=== PATIENT | female | born 1995 | race Caucasian/White ===

== ENCOUNTER 2018-06-15 07:48 | Emergency (ER) | payer OTHER, MEDICAID ==
[2018-06-15 08:35] LABS: HEMATOCRIT 40.2 % (36.0-47.0); HEMOGLOBIN 13.6 g/dl (12.0-15.5); MEAN CORPUSCULAR HEMOGLOBIN 31.6 pg (27.0-33.0); MEAN CORPUSCULAR HGB CONC 33.8 g/dl (32.0-36.5); MEAN CORPUSCULAR VOLUME 93.5 fl (80.0-96.0); PLATELET COUNT, AUTOMATED 233 10^3/uL (150-450)
[2018-06-15 08:57] LABS: CONTROL LINE HCG INT CTR LINE PRESENT; HCG, SERUM QUALITATIVE NEGATIVE (NEGATIVE)
[2018-06-15 09:01] LABS: ACETAMINOPHEN LEVEL < 2.0 UG/ML (10.0-30.0); ALBUMIN 3.7 GM/DL (3.2-5.2); ALBUMIN/GLOBULIN RATIO 1.23 (1.00-1.93); ALKALINE PHOSPHATASE 49 U/L (45-117); ALT/SGPT 21 U/L (12-78); ANION GAP 7 MEQ/L (8-16); AST/SGOT 16 U/L (7-37); BILIRUBIN,DIRECT 0.1 MG/DL (0.0-0.2); BILIRUBIN,TOTAL 0.5 MG/DL (0.2-1.0); BLOOD UREA NITROGEN 11 MG/DL (7-18); CALCIUM LEVEL 8.4 MG/DL (8.5-10.1); CARBON DIOXIDE LEVEL 28 MEQ/L (21-32); CHLORIDE LEVEL 108 MEQ/L (98-107); CREATININE FOR GFR 0.66 MG/DL (0.55-1.30); ETHYL ALCOHOL (ETHANOL) < 0.003 % (0.000-0.010); GLOMERULAR FILTRATION RATE > 60.0 (>60); GLUCOSE, FASTING 108 MG/DL (70-100); POTASSIUM SERUM 3.6 MEQ/L (3.5-5.1); SALICYLATE LEVEL < 1.7 MG/DL (5.0-30.0); SODIUM LEVEL 143 MEQ/L (136-145); TOTAL PROTEIN 6.7 GM/DL (6.4-8.2)
[2018-06-15 09:26] LABS: AMPHETAMINES LEVEL URINE NEGATIVE (NEGATIVE); BARBITURATES URINE NEGATIVE (NEGATIVE); BENZODIAZEPINES URINE POSITIVE (NEGATIVE); CANNABINOIDS URINE NEGATIVE (NEGATIVE); COCAINE METABOLITE URINE NEGATIVE (NEGATIVE); METHADONE URINE NEGATIVE (NEGATIVE); OPIATES URINE NEGATIVE (NEGATIVE); PHENCYCLIDINE URINE NEGATIVE (NEGATIVE)
[2018-06-15 14:14] LABS: AMORPHOUS SEDIMENT RFX MODERATE (NEGATIVE); KETONE, URINE AUTO RFX NEGATIVE (NEGATIVE); LEUKOCYTE ESTERASE UR AUTO RFX NEGATIVE (NEGATIVE); MUCUS, URINE RFX SMALL (NEGATIVE); NITRITE, URINE AUTO RFX NEGATIVE (NEGATIVE); RBC, URINE AUTO RFX 1 /HPF (0-3); SPECIFIC GRAVITY UR AUTO RFX 1.023 (1.002-1.035); SQUAM EPITHELIAL CELL UR AURFX 0 /HPF (0-6); WBC, URINE AUTO RFX 5 /HPF (0-3)
[2018-06-15] MEDS: NS 1,000 ML IV (14:53)
[2018-06-15] MEDS: ACETAMINOPHEN TAB 650MG DOSE (2X325MG) PO (15:30)
== END 2018-06-15 17:08 | disposition home or self-care (01) ==
LOC: M ED 07:48
DX: F13.10 Sedative, hypnotic or anxiolytic abuse, uncomplicated (principal); F31.9 Bipolar disorder, unspecified; F19.10 Other psychoactive substance abuse, uncomplicated; F11.10 Opioid abuse, uncomplicated; Z79.899 Other long term (current) drug therapy
CPT/HCPCS: 71045

== ENCOUNTER 2018-06-27 15:00 | Outpatient (RCR) | payer MEDICAID | END 2018-07-01 | LOC: M OUTALCOH 15:00 | PROVIDERS: ATTEND Psychiatry & Neurology Psychiatry | DX: F11.20 Opioid dependence, uncomplicated (principal); F13.20 Sedative, hypnotic or anxiolytic dependence, uncomplicated ==

== ENCOUNTER → 2018-06-27 | Outpatient (CLI) | payer OTHER ==
[~2018-06-27] MED LIST: ALPR1TAB3 PO; AMOX500C PO; AMPH20CA PO; COLA100C5 PO; FLAG500T PO; IBUP-1022 PO; IBUP1TAB7 PO; MOM30SS PO; OXCA300T14 PO; SUBO4MIS SL; SUBO8MIS SL; TRAZ-163 PO; TRIL1TAB PO; TRIL600T PO; TYLE500T78 PO; XANA1TAB2 PO; adderall PO; subutex PO; toradol PO
== END ==
LOC: M LAB 16:50
PROVIDERS: ATTEND Psychiatry & Neurology Psychiatry
DX: F11.20 Opioid dependence, uncomplicated (principal)

== ENCOUNTER → 2018-06-28 | Outpatient (REF) | payer OTHER | LOC: M LAB REF 10:56 | PROVIDERS: ATTEND Physician Assistant Medical | DX: N89.9 Noninflammatory disorder of vagina, unspecified (principal) ==

== ENCOUNTER → 2018-08-01 | Outpatient (RCR) | payer MEDICAID | LOC: M OUTALCOH 07-05 08:13 | PROVIDERS: ATTEND Psychiatry & Neurology Psychiatry | DX: F11.20 Opioid dependence, uncomplicated (principal); F13.20 Sedative, hypnotic or anxiolytic dependence, uncomplicated ==

== ENCOUNTER 2018-08-28 08:45 | Outpatient (RCR) | payer MEDICAID | END 2018-08-29 | LOC: M OUTALCOH 08:45 | PROVIDERS: ATTEND Psychiatry & Neurology Psychiatry | DX: F11.20 Opioid dependence, uncomplicated (principal); F13.20 Sedative, hypnotic or anxiolytic dependence, uncomplicated ==

== ENCOUNTER 2018-09-27 11:00 | Outpatient (RCR) | payer MEDICAID | END 2018-09-29 | LOC: M OUTALCOH 11:00 | PROVIDERS: ATTEND Psychiatry & Neurology Psychiatry | DX: F11.20 Opioid dependence, uncomplicated (principal); F13.20 Sedative, hypnotic or anxiolytic dependence, uncomplicated ==

== ENCOUNTER 2018-10-25 16:00 | Outpatient (RCR) | payer MEDICAID | END 2018-10-29 | LOC: M OUTALCOH 16:00 | PROVIDERS: ATTEND Psychiatry & Neurology Psychiatry | DX: F11.20 Opioid dependence, uncomplicated (principal); F13.20 Sedative, hypnotic or anxiolytic dependence, uncomplicated; F15.20 Other stimulant dependence, uncomplicated; Z72.0 Tobacco use ==

== ENCOUNTER → 2018-11-27 | Outpatient (REF) | payer MEDICAID | LOC: M LAB REF 10:34 | PROVIDERS: ATTEND Physician Assistant | DX: J02.9 Acute pharyngitis, unspecified (principal) ==

== ENCOUNTER 2018-11-28 16:00 | Outpatient (RCR) | payer MEDICAID | END 2018-11-29 | LOC: M OUTALCOH 16:00 | PROVIDERS: ATTEND Psychiatry & Neurology Psychiatry | DX: F11.20 Opioid dependence, uncomplicated (principal); F13.20 Sedative, hypnotic or anxiolytic dependence, uncomplicated; F15.20 Other stimulant dependence, uncomplicated; Z72.0 Tobacco use ==

== ENCOUNTER 2018-12-04 16:00 | Outpatient (RCR) | payer MEDICAID | END 2018-12-29 | LOC: M OUTALCOH 16:00 | PROVIDERS: ATTEND Psychiatry & Neurology Psychiatry | DX: F11.20 Opioid dependence, uncomplicated (principal); F13.20 Sedative, hypnotic or anxiolytic dependence, uncomplicated ==

== ENCOUNTER → 2018-12-12 | Outpatient (REF) | payer MEDICAID | LOC: M LAB REF 12:53 | PROVIDERS: ATTEND Advanced Practice Midwife | DX: R30.0 Dysuria (principal) ==

== ENCOUNTER → 2018-12-12 | Outpatient (REF) | payer MEDICAID ==
[2018-12-12 16:59] LABS: CHLAMYDIA DNA AMPLIFICATION NEGATIVE (NEGATIVE); GC DNA AMPLIFICATION NEGATIVE (NEGATIVE)
== END ==
LOC: M LAB REF 12:45
PROVIDERS: ATTEND Advanced Practice Midwife
DX: Z11.3 Encounter for screening for infections with a predominantly sexual mode of transmission (principal)

== ENCOUNTER → 2019-03-04 | Outpatient (REF) | payer MEDICAID | LOC: M LAB REF 20:08 | PROVIDERS: ATTEND Advanced Practice Midwife | DX: Z12.4 Encounter for screening for malignant neoplasm of cervix (principal) ==

== ENCOUNTER 2019-03-28 11:03 | Emergency (ER) | payer MEDICAID, OTHER ==
[2019-03-28] MEDS ORDERED: BUPR8SUB SL (11:17)
[2019-03-28] MEDS ORDERED: NS 1,000 ML IV ONE (11:45)
--- NOTE | 2019-03-28 12:21 | REP ---
Head CT without contrast: History: Syncope. patient. Comparison study: June 15, 2018. CT findings: Bone window settings demonstrate an intact bony calvarium. There is no evidence of skull fracture or incidental bony calvarial lesion. The visualized paranasal sinuses appear clear. No intraorbital abnormality is seen. On soft tissue window setting images; the lateral, third, and fourth ventricles are normal in size and position. Clay-white differentiation pattern is normal above and below the tentorium. There are is no evidence of intracranial hemorrhage. No mass, edema, infarction, or midline shift is seen. No extra-axial fluid collection is appreciated. Impression: Negative noncontrast head CT. Electronically Signed by Juan Rice MD 03/28/2019 12:13 P
--- NOTE | 2019-03-28 12:23 | REP ---
CT study of the cervical spine without contrast: History: Syncope. patient. Technique: Helical scanning is acquired and overlapping 2 mm high resolution axial images were generated and reviewed at bone and soft tissue window settings. Coronal and sagittal multiplanar re-formations images are generated. CT findings: There is no evidence of cervical spine element fracture. No skull base fracture is seen. Cervical vertebral body heights are preserved. Alignment is normal. Facet joints are normally aligned bilaterally at each cervical level on multiplanar re-formations images. There is no evidence of intraspinal or paraspinal hematoma. No extra vertebral abnormality is seen. Impression: Negative CT study of the cervical spine without contrast. No fracture seen. Electronically Signed by Juan Rice MD 03/28/2019 12:14 P
[2019-03-28] MEDS ORDERED: ONDANSETRON 4 MG ORAL DISINTEGRATING TAB (Q0162 PER 1MG) PO ONE (13:30)
[2019-03-28 13:58] LABS: HEMATOCRIT 37.5 % (36.0-47.0); HEMOGLOBIN 13.2 g/dl (12.0-15.5); RED BLOOD COUNT 4.12 10^6/uL (4.00-5.40); WHITE BLOOD COUNT 8.5 10^3/uL (4.0-10.0)
[2019-03-28 13:59] LABS: BASO % 0.4 % (0.0-1.0); EOS % 0.5 % (0.0-3.0); LYMPH # 1.7 10^3/uL (1.5-5.0); LYMPH % 19.8 % (24.0-44.0); MEAN CORPUSCULAR HGB CONC 35.2 g/dl (32.0-36.5); MONO # 0.5 10^3/uL (0.0-0.8); MONO % 5.6 % (0.0-5.0); NEUTROPHILS # 6.2 10^3/uL (1.5-8.5); NEUTROPHILS % 73.2 % (36.0-66.0); PLATELET COUNT, AUTOMATED 223 10^3/uL (150-450)
[2019-03-28 14:35] LABS: BLOOD UREA NITROGEN 10 MG/DL (7-18); CALCIUM LEVEL 8.7 MG/DL (8.5-10.1); CARBON DIOXIDE LEVEL 24 MEQ/L (21-32); CHLORIDE LEVEL 105 MEQ/L (98-107); CREATININE FOR GFR 0.38 MG/DL (0.55-1.30); GLOMERULAR FILTRATION RATE > 60.0 (>60); GLUCOSE, FASTING 75 MG/DL (70-100); SODIUM LEVEL 138 MEQ/L (136-145)
[2019-03-28 15:16] VITALS: BP 117/65
--- NOTE | 2019-03-28 15:19 | REP ---
OB ULTRASOUND: Real-time sonographic evaluation of the gravid uterus performed. There is a single living intrauterine gestation, estimated gestational age 13 weeks 4 days, EDC 09/29/2019. Today's measurements indicate appropriate growth. BPD 22 mm = 13 weeks 5 days, 54th percentile HC 88 mm = 13 weeks 6 days, 61st percentile AC 67 mm = 13 weeks 2 days, 42nd percentile FL 11 mm = 13 weeks 3 days, 43rd percentile HC/AC ratio 1.32, is slightly above normal range of 1.11 to 1.30. Estimated weight 74 grams, 24th percentile. Cervix is closed and measures 4.2 cm in length. heart rate 153 beats per minute. Placenta is anterior and grade 0 with no previa or abruption. Amniotic fluid appears within normal limits. Electronically Signed by Farzad Clay MD 03/28/2019 05:01 P
[2019-03-28 15:32] LABS: HCG, SERUM QUANTITATIVE 32259 MIU/ML
--- NOTE | 2019-03-28 20:09 | ECGEPIP ---
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
== END 2019-03-28 15:31 | disposition home or self-care (01) ==
LOC: EDBD 11:03 → M ED 11:03
DX: O99.89 Other specified diseases and conditions complicating pregnancy, childbirth and the puerperium (principal); R55 Syncope and collapse; Z3A.13 13 weeks gestation of pregnancy
CPT/HCPCS: 36415; 70450; 72125; 76811; 80048; 84443; 84702; 85025; 86850; 86900; 86901; 93005; 93041; 94760; 99285; Q0162

== ENCOUNTER 2019-04-02 05:35 | Emergency (ER) | payer OTHER ==
[~2019-04-02] VITALS: Ht 170.2 cm; Wt 79.1 kg
[~2019-04-02 05:35] MED LIST changes: +AMPH1CAP16 PO; -AMPH20CA PO; +BUPR8SUB SL
[2019-04-02 06:56] LABS: BASO % 0.3 % (0.0-1.0); EOS # 0.1 10^3/uL (0.0-0.5); EOS % 0.8 % (0.0-3.0); HEMATOCRIT 34.5 % (36.0-47.0); HEMOGLOBIN 12.3 g/dl (12.0-15.5); LYMPH # 1.7 10^3/uL (1.5-5.0); LYMPH % 23.1 % (24.0-44.0); MEAN CORPUSCULAR HEMOGLOBIN 32.5 pg (27.0-33.0); MEAN CORPUSCULAR HGB CONC 35.7 g/dl (32.0-36.5); MONO # 0.5 10^3/uL (0.0-0.8); MONO % 6.5 % (0.0-5.0); PLATELET COUNT, AUTOMATED 194 10^3/uL (150-450); RED BLOOD COUNT 3.79 10^6/uL (4.00-5.40); WHITE BLOOD COUNT 7.2 10^3/uL (4.0-10.0)
[2019-04-02 07:46] LABS: ALBUMIN 2.7 GM/DL (3.2-5.2); ALT/SGPT 13 U/L (12-78); BILIRUBIN,DIRECT < 0.1 MG/DL (0.0-0.2); BILIRUBIN,TOTAL 0.4 MG/DL (0.2-1.0); BLOOD UREA NITROGEN 7 MG/DL (7-18); CALCIUM LEVEL 8.3 MG/DL (8.5-10.1); CARBON DIOXIDE LEVEL 22 MEQ/L (21-32); CHLORIDE LEVEL 109 MEQ/L (98-107); GLOMERULAR FILTRATION RATE > 60.0 (>60); GLUCOSE, FASTING 81 MG/DL (70-100); HCG, SERUM QUANTITATIVE 32269 MIU/ML; LIPASE 96 U/L (73-393); POTASSIUM SERUM 3.7 MEQ/L (3.5-5.1); SODIUM LEVEL 140 MEQ/L (136-145); TOTAL PROTEIN 6.2 GM/DL (6.4-8.2)
[2019-04-02 10:30] VITALS: BP 107/57
--- NOTE | 2019-04-02 10:37 | REP ---
Limited obstetric sonography: History: Vaginal bleeding. 14 weeks 2 days by dates. 14 weeks 2 days by prior sonography. Findings: Scanning through the gravid uterus demonstrates a living intrauterine gestation in a cephalic lie. heart rate is recorded at 149 beats per minute. An anterior placenta is seen without evidence of previa. No evidence of subchorionic hemorrhage. Amniotic fluid is subjectively normal. Closed cervical length measured transabdominally is 4.6 cm. Impression: Viable cephalic fetus. No complication is seen. Electronically Signed by Juan Rice MD 04/02/2019 08:38 A
== END 2019-04-02 10:40 | disposition home or self-care (01) ==
LOC: M ED 05:35
DX: O20.8 Other hemorrhage in early pregnancy (principal); Z3A.14 14 weeks gestation of pregnancy; Z86.19 Personal history of other infectious and parasitic diseases; Z87.59 Personal history of other complications of pregnancy, childbirth and the puerperium; O99.89 Other specified diseases and conditions complicating pregnancy, childbirth and the puerperium; F11.21 Opioid dependence, in remission; F13.21 Sedative, hypnotic or anxiolytic dependence, in remission; Z87.891 Personal history of nicotine dependence; Z79.899 Other long term (current) drug therapy

== ENCOUNTER → 2019-04-29 | Outpatient (CLI) | payer OTHER ==
--- NOTE | 2019-04-29 15:07 | REP ---
Clinical: Anatomical evaluation. Comparison: 04/02/2019 . Findings: Examination demonstrates a single live intrauterine in cephalic presentation. motion is identified by technologist. Placenta is noted anterior and grade zero without evidence for placenta previa or abruption. Amniotic fluid volume is normal. Cervix measures 5.3 cm in length and appears closed. No evidence for nuchal cord. Gestational age by LMP 18 weeks 1 day with LUKAS 09/29/2019 . Gestational age by current measurements 17 weeks 5 days with LUKAS 10/02/2019 . FHR equals 149 beats per minute. BPD 3.9 cm 17 weeks 6 days HC 14.7 cm 17 weeks 6 days AC 11.2 cm 17 weeks 0 days FL 2.6 cm 17 weeks 6 days HL 2.5 cm 17 weeks 5 days HC/AC ratio 1.32 Estimated weight 196 grams ( 23rd percentile). Anatomical assessment demonstrates normal structures including cranium, choroid plexus, cavum, lungs, four-chamber heart, diaphragm, stomach, cord insertion, bladder, and extremities. Limited evaluation of the posterior fossa, facial features, cardiac ventricular outflow tracts, three-vessel cord, kidneys and spine. Impression: Single live intrauterine in cephalic presentation demonstrating appropriate interval growth. Anatomical limitations as noted above may warrant reevaluation and follow-up. Electronically Signed by Billy Mckinnon MD 04/29/2019 02:59 P
== END ==
LOC: M RAD 14:09
PROVIDERS: ATTEND Advanced Practice Midwife
DX: Z34.82 Encounter for supervision of other normal pregnancy, second trimester (principal); Z3A.18 18 weeks gestation of pregnancy

== ENCOUNTER 2019-05-08 08:36 | Emergency (ER) | payer OTHER ==
[~2019-05-08] VITALS: Ht 170.2 cm; Wt 87.9 kg
[2019-05-08] MEDS ORDERED: ONDA4TAB5 (09:00)
[2019-05-08] MEDS ORDERED: NS 1,000 ML IV ONE (09:30)
[2019-05-08 10:20] LABS: BASO % 0.3 % (0.0-1.0); EOS % 0.4 % (0.0-3.0); HEMOGLOBIN 11.7 g/dl (12.0-15.5); LYMPH # 1.3 10^3/uL (1.5-5.0); LYMPH % 17.7 % (24.0-44.0); MEAN CORPUSCULAR HEMOGLOBIN 31.3 pg (27.0-33.0); MEAN CORPUSCULAR HGB CONC 33.4 g/dl (32.0-36.5); MEAN CORPUSCULAR VOLUME 93.6 fl (80.0-96.0); MONO # 0.4 10^3/uL (0.0-0.8); MONO % 5.4 % (0.0-5.0); NEUTROPHILS # 5.4 10^3/uL (1.5-8.5); NEUTROPHILS % 75.8 % (36.0-66.0); PLATELET COUNT, AUTOMATED 210 10^3/uL (150-450); RED BLOOD COUNT 3.74 10^6/uL (4.00-5.40); WHITE BLOOD COUNT 7.1 10^3/uL (4.0-10.0)
[2019-05-08 10:31] LABS: INR 1.04; PROTHROMBIN TIME 13.4 SECONDS (11.8-14.0)
[2019-05-08 10:44] LABS: ALBUMIN 2.7 GM/DL (3.2-5.2); ALT/SGPT 13 U/L (12-78); AMYLASE 31 U/L (25-115); BILIRUBIN,DIRECT < 0.1 MG/DL (0.0-0.2); BILIRUBIN,TOTAL 0.4 MG/DL (0.2-1.0); BLOOD UREA NITROGEN 7 MG/DL (7-18); CALCIUM LEVEL 8.3 MG/DL (8.5-10.1); CARBON DIOXIDE LEVEL 24 MEQ/L (21-32); CHLORIDE LEVEL 109 MEQ/L (98-107); GLOMERULAR FILTRATION RATE > 60.0 (>60); GLUCOSE, FASTING 81 MG/DL (70-100); LIPASE 72 U/L (73-393); SODIUM LEVEL 141 MEQ/L (136-145)
[2019-05-08] MEDS ORDERED: MORPHINE 2 MG/ML 1ML VIAL (J2270) IV PRN (10:45)
--- NOTE | 2019-05-08 11:09 | REP ---
Obstetric sonography: Limited study. History: Pain. Findings: Limited obstetric sonography demonstrates a single living intrauterine fetus in variable lie. motion is observed and heart rate is recorder 152 beats per minute. The placenta is anterior without evidence of previa or abruption. Amniotic fluid is subjectively normal. No extrauterine abnormalities observed. Closed cervical length is measured at 4.5 cm viewed transabdominally. Impression: Viable single intrauterine gestation at the and 19 weeks 3 days by prior sonography LUKAS by prior sonography September 29, 2019. No complication is identified. Variable lie. heart rate 152 beats per minute. Anterior placenta. No previa or abruption. Electronically Signed by Juan Rice MD 05/08/2019 11:01 A
[2019-05-08] MEDS ORDERED: HYDROMORPHONE HCL 0.5 MG/ 0.5 ML SYRINGE (J1170 PER 1) IV PRN (11:30)
[2019-05-08 15:58] VITALS: BP 143/63
[2019-05-08] MEDS ORDERED: ACETAMINOPHEN TAB 650MG DOSE (2X325MG) PO ONE (16:15)
== END 2019-05-08 16:25 | disposition home or self-care (01) ==
LOC: M ED 08:36
DX: O26.892 Other specified pregnancy related conditions, second trimester (principal); Z3A.19 19 weeks gestation of pregnancy; R10.2 Pelvic and perineal pain; Z87.891 Personal history of nicotine dependence; Z79.899 Other long term (current) drug therapy
CPT/HCPCS: 36415; 76815; 80048; 80076; 81001; 82150; 83690; 85025; 85610; 85730; 86850; 86900; 86901; 87086; 93041; 96361; 96374; 96375; 99285; J1170; J2270

== ENCOUNTER → 2019-05-23 | Outpatient (REF) | payer MEDICAID ==
[~2019-05-23] MED LIST changes: +ONDA4TAB5
[2019-05-23 21:36] LABS: APPEARANCE, URINE MANUAL HAZY (CLEAR); BILIRUBIN, URINE MANUAL OBSCURED (NEGATIVE); BLOOD URINE MANUAL OBSCURED (NEGATIVE); COLOR, URINE MANUAL ORANGE (YELLOW); GLUCOSE, URINE (UA) MANUAL OBSCURED mg/dL (NEGATIVE); KETONE, URINE MANUAL OBSCURED mg/dL (NEGATIVE); LEUKOCYTE ESTERASE, URINE MAN OBSCURED (NEGATIVE); NITRITE, URINE MANUAL OBSCURED (NEGATIVE); PH,URINE MAN OBSCURED UNITS (5.0 - 7.0); PROTEIN, URINE MANUAL OBSCURED mg/dL (NEGATIVE); SPECIFIC GRAVITY,URINE MANUAL 1.028 (1.002-1.035); UROBILINOGEN, URINE MANUAL OBSCURED mg/dl (NORMAL)
[2019-05-23 21:44] LABS: BACTERIA, URINE MOD AMOUNT; HYALINE CAST, URINE NONE SEEN /lpf (0-1); MUCUS, URINE LARGE AMOUNT (NEGATIVE); SQUAMOUS EPITHELIAL CELL URINE MOD AMOUNT /hpf (SMALL AMT)
== END ==
LOC: M LAB REF 10:21
PROVIDERS: ATTEND Physician Assistant
DX: N39.0 Urinary tract infection, site not specified (principal)

== ENCOUNTER → 2019-05-27 | Outpatient (CLI) | payer MEDICAID ==
[2019-05-27 14:10] LABS: BASO % 0.3 % (0.0-1.0); EOS # 0.1 10^3/uL (0.0-0.5); EOS % 0.9 % (0.0-3.0); HEMATOCRIT 36.5 % (36.0-47.0); HEMOGLOBIN 12.2 g/dl (12.0-15.5); LYMPH # 1.7 10^3/uL (1.5-5.0); LYMPH % 18.8 % (24.0-44.0); MEAN CORPUSCULAR HEMOGLOBIN 31.6 pg (27.0-33.0); MEAN CORPUSCULAR HGB CONC 33.4 g/dl (32.0-36.5); MEAN CORPUSCULAR VOLUME 94.6 fl (80.0-96.0); MONO # 0.6 10^3/uL (0.0-0.8); MONO % 6.7 % (0.0-5.0); NEUTROPHILS # 6.5 10^3/uL (1.5-8.5); NEUTROPHILS % 73.1 % (36.0-66.0); PLATELET COUNT, AUTOMATED 216 10^3/uL (150-450); RED BLOOD COUNT 3.86 10^6/uL (4.00-5.40)
[2019-05-28 10:06] LABS: HEPATITIS C VIRUS ABY INDEX 0.1 INDEX (<0.8); HIV 1&2 SCREEN CENTAUR NEGATIVE (NEGATIVE); RUBELLA IgG QUALITATIVE IMMUNE (IMMUNE)
== END ==
LOC: M PLALAB 09:09
PROVIDERS: ATTEND Advanced Practice Midwife
DX: Z34.81 Encounter for supervision of other normal pregnancy, first trimester (principal); Z3A.10 10 weeks gestation of pregnancy

== ENCOUNTER → 2019-06-02 | Outpatient (REF) | payer MEDICAID, OTHER | LOC: M PLALAB 15:55 | PROVIDERS: ATTEND Obstetrics & Gynecology | DX: Z34.93 Encounter for supervision of normal pregnancy, unspecified, third trimester (principal) ==

== ENCOUNTER → 2019-06-04 | Outpatient (CLI) | payer OTHER ==
--- NOTE | 2019-06-05 07:53 | REP ---
Clinical: Anatomical evaluation. Comparison: None . Findings: Examination demonstrates a single live intrauterine in breech presentation. motion is identified by technologist. Placenta is noted anterior and grade zero without evidence for placenta previa or abruption. Amniotic fluid volume is normal. Cervix measures 4.2 cm in length and appears closed. Nuchal cord cannot be excluded Gestational age by LMP 23 weeks 2 days with LUKAS 09/29/2019 . Gestational age by current measurements 22 weeks 4 days with LUKAS 10/04/2019 . FHR equals 135 beats per minute. BPD 5.3 cm 22 weeks 0 days HC 20.4 cm 22 weeks 4 days AC 17.6 cm 22 weeks 4 days FL 4.0 cm 22 weeks 6 days HL 3.6 cm 22 weeks 4 days HC/AC ratio 1.16 Estimated weight 522 grams ( 26th percentile). Anatomical assessment demonstrates normal structures including cranium, choroid plexus, cavum, cerebellum/posterior fossa, facial features, lungs, four-chamber heart/ventricular outflow tracts, diaphragm, stomach, cord insertion/three-vessel cord, kidneys/bladder, and extremities. Impression: 1. Single live intrauterine in breech presentation demonstrating appropriate interval growth. 2. Limited evaluation of the spine noted. Remainder of the anatomical assessment is complete and normal. 3. Nuchal cord cannot be excluded. Electronically Signed by Billy Mckinnon MD 06/05/2019 07:44 A
== END ==
LOC: M RAD 16:58
PROVIDERS: ATTEND Obstetrics & Gynecology
DX: O34.219 Maternal care for unspecified type scar from previous cesarean delivery (principal); Z3A.22 22 weeks gestation of pregnancy

== ENCOUNTER 2019-08-07 05:56 | Outpatient (CLI) | payer OTHER ==
[~2019-08-07] VITALS: Ht 170.2 cm; Wt 86.1 kg
[~2019-08-07 05:56] MED LIST changes: +ONDA-83; -ONDA4TAB5; -TRAZ-163 PO; +TRAZ-257 PO
[2019-08-07 06:13] VITALS: BP 105/53
[2019-08-07] MEDS ORDERED: BUTORPHANOL 2 MG/ML INJ (J0595) IV ONE (06:45)
[2019-08-07] MEDS ORDERED: PROMETHAZINE INJ 25 MG/ML VIAL (J2550) IV ONE (06:45)
[2019-08-07 06:55] LABS: HEMATOCRIT 33.8 % (36.0-47.0); HEMOGLOBIN 10.9 g/dl (12.0-15.5); MEAN CORPUSCULAR HEMOGLOBIN 29.8 pg (27.0-33.0); MEAN CORPUSCULAR HGB CONC 32.2 g/dl (32.0-36.5); MEAN CORPUSCULAR VOLUME 92.3 fl (80.0-96.0); PLATELET COUNT, AUTOMATED 208 10^3/uL (150-450); RED BLOOD COUNT 3.66 10^6/uL (4.00-5.40); WHITE BLOOD COUNT 8.5 10^3/uL (4.0-10.0)
[2019-08-07 07:07] VITALS: BP 125/60
[2019-08-07] MEDS ORDERED: ACETAMINOPHEN 500 MG TAB PO ONE (07:45)
[2019-08-07 08:45] VITALS: BP 102/48
[2019-08-07 09:56] VITALS: BP 116/58
[2019-08-07 10:59] VITALS: BP 112/53
[2019-08-07 11:19] VITALS: BP 122/58
--- NOTE | 2019-08-07 12:36 | HPE ---
DATE OF EVALUATION: 08/07/2019 A 24-year-old G3, P2 female, 32 weeks' gestation, presents after a fall at home. She was running outside to catch a taxicab and slipped on her front porch, landed on her abdomen. She denies vaginal bleeding. She has mild lower abdominal cramping and some low back discomfort. She came right to the hospital. She has good movement. OBJECTIVE: Afebrile. Vital signs stable. No apparent distress. Head examination normal. Abdomen nontender, gravid. No costovertebral angle (CVA) tenderness. category 1 contractions, irregular, mild. Kleihauer-Betke 0. ASSESSMENT: A 24-year-old G3, P2 at 32 weeks, status post fall with abdominal trauma. PLAN: The patient was monitored for greater than 4 hours. She had a category 1 tracing throughout. She has no tenderness on examination. The patient is stable for discharge. The patient will have followup in the office as scheduled. She will report worsening symptoms.
== END 2019-08-07 11:34 | disposition home or self-care (01) ==
LOC: M LDO 05:56
PROVIDERS: ATTEND Advanced Practice Midwife
DX: O9A.213 Injury, poisoning and certain other consequences of external causes complicating pregnancy, third trimester (principal); R10.9 Unspecified abdominal pain; M54.5 Low back pain; W01.0XXA Fall on same level from slipping, tripping and stumbling without subsequent striking against object, initial encounter; Y92.008 Other place in unspecified non-institutional (private) residence as the place of occurrence of the external cause; Y93.02 Activity, running; Y99.9 Unspecified external cause status; Z3A.32 32 weeks gestation of pregnancy

== ENCOUNTER → 2019-08-08 | Outpatient (CLI) | payer OTHER ==
[2019-08-08 13:44] LABS: HEMATOCRIT 38.8 % (36.0-47.0); HEMOGLOBIN 12.3 g/dl (12.0-15.5); MEAN CORPUSCULAR HEMOGLOBIN 29.7 pg (27.0-33.0); MEAN CORPUSCULAR HGB CONC 31.7 g/dl (32.0-36.5); MEAN CORPUSCULAR VOLUME 93.7 fl (80.0-96.0); PLATELET COUNT, AUTOMATED 223 10^3/uL (150-450); RED BLOOD COUNT 4.14 10^6/uL (4.00-5.40); WHITE BLOOD COUNT 10.2 10^3/uL (4.0-10.0)
== END ==
LOC: M PLALAB 10:30
PROVIDERS: ATTEND Specialist
DX: Z34.82 Encounter for supervision of other normal pregnancy, second trimester (principal); Z3A.00 Weeks of gestation of pregnancy not specified

== ENCOUNTER 2019-08-29 09:34 | Outpatient (CLI) | payer OTHER ==
[~2019-08-29] VITALS: Ht 170.2 cm; Wt 88.6 kg
[2019-08-29 09:48] VITALS: BP 116/66
[2019-08-29] MEDS ORDERED: PRENTAB9 PO (09:51)
--- NOTE | 2019-08-29 10:32 | IPNPDOC ---
Text Note Date of Service The patient was seen on 08/29/19. NOTE Triage: Subjective: Patient reports a feeling of wetness while at work. Denies current leakage of fluid. Denies contractions. Reports positive movement. Denies vaginal bleeding. Objective: Patient in no apparent signs of distress. Cervix visually closed with via sterile speculum exam. Negative pooling and negative valsalva. Fern test negative. No contractions noted on EFM. FHR 130s, moderate variability. Accelerations present, decelerations absent. Assessment: , previous section x 2. SIUP at 35.4wk gestation, rule out rupture of membranes, FHR category 1 tracing. Plan: Discharged home. Reviewed access to care, [facility], labor signs and signs of rupture of membranes. Keep appointment next week. VS,Fishbone, I+O VS, Fishbone, I+O Vital Signs Date Time Temp Pulse Resp B/P (MAP) Pulse Ox O2 Delivery O2 Flow Rate FiO2 08/29/19 09:48 98.8 86 16 116/66 (83) Iva Martinez CNM Aug 29, 2019 10:32
== END 2019-08-29 10:29 | disposition home or self-care (01) ==
LOC: M LDO 09:34
PROVIDERS: ATTEND Advanced Practice Midwife
DX: O34.211 Maternal care for low transverse scar from previous cesarean delivery (principal); Z3A.35 35 weeks gestation of pregnancy

== ENCOUNTER → 2019-09-03 | Outpatient (REF) | payer OTHER ==
[~2019-09-03] MED LIST changes: +PRENTAB9 PO
== END ==
LOC: M SFHCWAGY 10:43
PROVIDERS: ATTEND Obstetrics & Gynecology
DX: Z36.85 Encounter for antenatal screening for Streptococcus B (principal); O34.211 Maternal care for low transverse scar from previous cesarean delivery

== ENCOUNTER 2019-09-22 06:03 | Inpatient (IN) | payer OTHER ==
[2019-09-22] VITALS (9 sets, daily range): BP systolic 95–132; BP diastolic 50–79
[~2019-09-22] VITALS: Ht 165.1 cm; Wt 90.1 kg
[2019-09-22 06:52] LABS: HEMATOCRIT 35.2 % (36.0-47.0); HEMOGLOBIN 11.4 g/dl (12.0-15.5); MEAN CORPUSCULAR HEMOGLOBIN 28.9 pg (27.0-33.0); MEAN CORPUSCULAR HGB CONC 32.4 g/dl (32.0-36.5); MEAN CORPUSCULAR VOLUME 89.3 fl (80.0-96.0); PLATELET COUNT, AUTOMATED 217 10^3/uL (150-450); RED BLOOD COUNT 3.94 10^6/uL (4.00-5.40); WHITE BLOOD COUNT 9.9 10^3/uL (4.0-10.0)
[2019-09-22] MEDS ORDERED: MORPHINE PRES-FREE INJ 10 MG/10 ML VIAL (J2274) As Ordered ONE (07:04)
[2019-09-22] MEDS ORDERED: LACTATED RINGER'S 1000 ML IV STA (07:19)
[2019-09-22] MEDS ORDERED: LR 1,000 ML IV SCH ×2 (07:19→07:30)
[2019-09-22] MEDS ORDERED: BICITRA 30ML SOLN UDC PO ONE ×2 (07:30)
[2019-09-22] MEDS ORDERED: ceFAZolin SOD 2 GM in IV 1 EA IV ONE ×4 (07:30)
[2019-09-22] MEDS ORDERED: LACTATED RINGER'S 1000 ML IV ONE (07:30)
[2019-09-22] MEDS ORDERED: diphenhydrAMINE INJ 50MG/ML VIAL (J1200) IV PRN (08:42)
[2019-09-22] MEDS ORDERED: ONDANSETRON 4MG/2ML VIAL (J2405) IV PRN ×3 (08:42→10:15)
[2019-09-22] MEDS ORDERED: METOCLOPRAMIDE INJ 10MG/2ML VIAL (J2765) IV PRN (08:42)
[2019-09-22] MEDS ORDERED: NALBUPHINE HCL 10 MG/ML AMP (J2300) IV PRN ×2 (08:42→10:15)
[2019-09-22] MEDS ORDERED: NALOXONE INJ 0.4 MG/1 ML VIAL (J2310) IV PRN ×2 (08:42)
[2019-09-22] MEDS ORDERED: OXYTOCIN 30 UNITS IN 0.9% NaCl 500ML IV BAG (J2590) As Ordered ONE ×2 (08:52→09:54)
[2019-09-22] MEDS ORDERED: ONDANSETRON 4MG/2ML VIAL (J2405) As Ordered ONE ×2 (08:56→09:12)
[2019-09-22] MEDS ORDERED: dexameTHASONE 4 MG/ML 1ML VIAL (J1100) As Ordered ONE (08:56)
[2019-09-22] MEDS: DOCUSATE SODIUM 100 MG CAP PO SCH ×2 (09:00→19:57)
[2019-09-22] MEDS ORDERED: BUPRENORPHINE/NALOXONE 8-2MG SUBLINGUAL TABLET(SUBOXONE) SL SCH (09:00)
[2019-09-22] MEDS: PRENATAL VITAMINS CHEWABLE TABLET PO SCH (09:00)
[2019-09-22] MEDS ORDERED: MIDAZOLAM INJ 2 MG/2 ML VIAL (J2250) As Ordered ONE (09:07)
[2019-09-22] MEDS ORDERED: PHENYLephrine HCL 500 MCG/5 ML (100MCG/ML) SYRINGE (J2370) As Ordered ONE (09:12)
[2019-09-22] MEDS ORDERED: BUPIVACAINE/DEXTROSE 0.75% 2 ML AMP As Ordered ONE (09:12)
[2019-09-22] MEDS ORDERED: OXYTOCIN INJ 10 UNITS/ML VIAL (J2590) As Ordered ONE (09:13)
[2019-09-22] MEDS: LR 1,000 ML IV SCH ×2 (09:57→15:57)
[2019-09-22] MEDS ORDERED: OXYTOCIN DRIP 30 UNITS in IV 1 EA IV SCH (09:57)
[2019-09-22] MEDS ORDERED: ACETAMINOPHEN TAB 650MG DOSE (2X325MG) PO PRN (10:00)
[2019-09-22] MEDS ORDERED: PROMETHAZINE 25 MG TAB PO PRN (10:00)
[2019-09-22] MEDS ORDERED: RHOGAM 300 MCG (1500 IU) INJ (J2790) IM SCH (10:00)
[2019-09-22] MEDS ORDERED: MEASLES,MUMPS,RUBELLA VACCINE INJ (MMR-II) (90707) SC SCH (10:00)
[2019-09-22] MEDS ORDERED: ANUSOL HC CREAM 30GM TOP PRN (10:00)
[2019-09-22] MEDS ORDERED: KETOROLAC 30 MG/ML VIAL (J1885) As Ordered ONE (10:22)
[2019-09-22] MEDS: KETOROLAC 30 MG/ML VIAL (J1885) IV SCH ×3 (10:24→22:23)
[2019-09-22] MEDS ORDERED: fentaNYL 100 MCG/2 ML INJECTION (J3010) As Ordered ONE (10:37)
[2019-09-22] MEDS: fentaNYL 100 MCG/2 ML INJECTION (J3010) IV PRN ×4 (10:41→10:59)
[2019-09-22] MEDS ORDERED: ACETAMINOPHEN 1000MG 100ML IV BTL (OFIRMEV) (J0131 PER 10MG) As Ordered ONE (11:10)
[2019-09-22] MEDS ORDERED: HYDROMORPHONE HCL 0.5 MG/ 0.5 ML SYRINGE (J1170 PER 1) As Ordered ONE ×2 (11:16→11:43)
[2019-09-22] MEDS: HYDROMORPHONE HCL 0.5 MG/ 0.5 ML SYRINGE (J1170 PER 1) IV PRN ×5 (11:27→11:59)
[2019-09-22] MEDS ORDERED: ACETAMINOPHEN *IV* 1,000 MG IV ONE ×2 (12:00)
--- NOTE | 2019-09-22 12:49 | ROOPDOC ---
[facility] Report Of Operation Report of Operation DATE OF PROCEDURE: 09/22/19 SURGEON: Sharda Bonds M.D. THERAPEUTIC RECREATION DIRECTOR: Lyndsey Martinez CNM ANESTHESIA:. Spinal ESTIMATED BLOOD LOSS: 500 mL URINE OUTPUT: 200 mL INTRAVENOUS FLUIDS:. 1 L of LR PREOPERATIVE ANTIBIOTICS:. 2 g of Ancef OPERATIVE FINDINGS: Liveborn female infant, Apgars 7 and 8. Weight was 3250 g or 7 lbs. 3 oz. SPECIMENS:. Cord blood Preoperative diagnosis: 1. Intrauterine at 39 weeks for repeat section. 2. History of 2 prior section Postoperative diagnosis: 1. Intrauterine at 39 weeks for repeat section. 2. History of 2 prior section DESCRIPTION OF PROCEDURE: After informed consent was obtained and written consent was reviewed. The patient was brought to the operating room where spinal anesthesia was placed. She was then placed in the supine position with a left lateral tilt. Green catheter was placed and to gravity. Patient was then prepped and draped in the normal sterile fashion. A timeout operating room was performed identifying the patient, procedure be performed as well as drug allergies. Anesthesia was tested and deemed to be adequate. Pfannenstiel skin incision was made and this was carried down to the underlying rectus fascia. The fascia was then scored and this incision was extended bilaterally. The fascia was then dissected off the underlying rectus muscle superiorly and inferiorly. The rectus muscles were then in the midline. The peritoneum is then entered. Vesicouterine peritoneum was then tented and excised and a bladder flap was created. Mobius retractor was then placed. Next, a curvilinear incision was then made in the lower uterine segment. Amniotomy was performed, productive, clear fluid. The head was brought to the level of the incision atraumatically and delivered along the shoulders and corpus. The cord was clamped 2. The was brought over to the warmer with a good cry. Placenta delivered grossly intact. The uterus was cleared of all clots and debris and the uterine incision was then closed in 2 layers using 0 Vicryl, first in a running locking fashion followed by second layer for imbrication. The abdomen suctioned. Surgical sites reinspected and noted be hemostatic. The retractor was then removed. The anterior peritoneum was then reapproximated with 3-0 Vicryl. The rectus muscles were reapproximated 3-0 Vicryl. The fascia was then closed using 0 Vicryl in a running nonlocking fashion. The subcutaneous tissues was then irrigated and suctioned. Subcutaneous tissue was reapproximated using 3-0 Vicryl. Several subdermal stitch is placed using 3-0 Vicryl and the skin was closed with 4-0 Monocryl and subarticular fashion. This incision was then cleaned and dried and was dressed. The patient was then taken to recovery in stable condition. All counts were correct. My surgical device sales representative Lyndsey Martinez played in an essential roll during the operation. They assisted with tissue identification retraction, delivery of the , as well as wound closure. SHARDA BONDS MD. Sep 22, 2019 12:49
[2019-09-22] MEDS: BUPRENORPHINE/NALOXONE 8-2MG SUBLINGUAL TABLET(SUBOXONE) SL SCH ×2 (13:39→19:57)
[2019-09-22] MEDS: ACETAMINOPHEN 500 MG TAB PO PRN (18:42)
[2019-09-23] MEDS: LR 1,000 ML IV SCH (01:57)
[2019-09-23 02:00] VITALS: BP 119/57
[2019-09-23] MEDS: KETOROLAC 30 MG/ML VIAL (J1885) IV SCH (05:08)
[2019-09-23 05:59] VITALS: BP 112/59
[2019-09-23 06:04] LABS: HEMATOCRIT 29.7 % (36.0-47.0); HEMOGLOBIN 9.6 g/dl (12.0-15.5); MEAN CORPUSCULAR HEMOGLOBIN 29.4 pg (27.0-33.0); MEAN CORPUSCULAR HGB CONC 32.3 g/dl (32.0-36.5); MEAN CORPUSCULAR VOLUME 91.1 fl (80.0-96.0); PLATELET COUNT, AUTOMATED 201 10^3/uL (150-450); RED BLOOD COUNT 3.26 10^6/uL (4.00-5.40); WHITE BLOOD COUNT 11.6 10^3/uL (4.0-10.0)
[2019-09-23] MEDS: DOCUSATE SODIUM 100 MG CAP PO SCH ×2 (09:15→20:40)
[2019-09-23] MEDS: BUPRENORPHINE/NALOXONE 8-2MG SUBLINGUAL TABLET(SUBOXONE) SL SCH ×2 (09:15→20:39)
[2019-09-23] MEDS: PRENATAL VITAMINS CHEWABLE TABLET PO SCH (09:15)
--- NOTE | 2019-09-23 09:17 | IPNPDOC ---
Progress Note Date of Service: Sep 23, 2019 Day#: 1 Progress Note SUBJECT: Patient is day 1 postoperative from a repeat section. She has been ambulating, voiding spontaneously without issue and tolerating regular diet. Breast feeding with assistance. Reports pain has been managed appropriately. OBJECTIVE: VITAL SIGNS: Within normal limits, afebrile. Alert and oriented times three. Breath sounds clear to auscultation. Heart rate: Regular rate and rhythm, no murmurs, rubs or gallops. Abdomen: Fundus firm at U. Minimal lochia. ASSESSMENT: Day 1 postoperative PLAN: 1. Continue supportive nursing care and pain management care. 2. Anticipate discharge to home tomorrow. VS, I&O, 24H, Fishbone Vital Signs/I&O Vital Signs Date Time Temp Pulse Resp B/P (MAP) Pulse Ox O2 Delivery O2 Flow Rate FiO2 09/23/19 05:59 97.8 55 16 112/59 (76) 98 Room Air I&O- Last 24 Hours up to 6 AM 09/23/19 06:00 Intake Total 2812 ml Output Total 2575 ml Balance 237 ml Laboratory Data 24H LABS Laboratory Tests 2 09/23/19 05:51: Nucleated Red Blood Cells % (auto) 0.0 CBC/BMP Laboratory Tests 09/23/19 05:51 TOMMY GRULLON CNM Sep 23, 2019 09:17
[2019-09-23 10:00] VITALS: BP 111/51
[2019-09-23] MEDS ORDERED: IBUP80TA PO (11:16)
[2019-09-23] MEDS: ACETAMINOPHEN 500 MG TAB PO PRN (11:34)
[2019-09-23] MEDS: IBUPROFEN 800 MG TAB PO SCH ×2 (13:46→20:39)
[2019-09-23 14:00] VITALS: BP 107/53
[2019-09-23 18:00] VITALS: BP 115/51
[2019-09-23 22:00] VITALS: BP 107/53
[2019-09-24 02:00] VITALS: BP 111/54
[2019-09-24] MEDS: IBUPROFEN 800 MG TAB PO SCH (05:17)
[2019-09-24 06:00] VITALS: BP 111/55
[2019-09-24] MEDS ORDERED: ADACEL/BOOSTRIX VACCINE (DIPHTH/PERTUSS/ACELL/TETANUS)0.5ML SYR (90715) IM ONE (09:00)
[2019-09-24] MEDS: PRENATAL VITAMINS CHEWABLE TABLET PO SCH (09:12)
[2019-09-24] MEDS: BUPRENORPHINE/NALOXONE 8-2MG SUBLINGUAL TABLET(SUBOXONE) SL SCH (09:12)
[2019-09-24] MEDS: DOCUSATE SODIUM 100 MG CAP PO SCH (09:12)
== END 2019-09-24 14:35 | disposition home or self-care (01) | DRG 540 ==
LOC: M LDI 06:03 → M OBS 12:45
PROVIDERS: ADMIT Obstetrics & Gynecology; ATTEND Obstetrics & Gynecology
PROC: 10D00Z1 Extraction of Products of Conception, Low, Open Approach (ICD-10-PCS; principal; 2019-09-22 08:30)
DX: O34.211 Maternal care for low transverse scar from previous cesarean delivery (principal); Z37.0 Single live birth; Z3A.39 39 weeks gestation of pregnancy

== ENCOUNTER → 2020-01-08 | Outpatient (CLI) | payer OTHER ==
[~2020-01-08] MED LIST changes: +IBUP80TA PO
== END ==
LOC: M LABSMTC 11:00
PROVIDERS: ATTEND Pediatrics
DX: Z01.818 Encounter for other preprocedural examination (principal); Z11.59 Encounter for screening for other viral diseases; Z20.828 Contact with and (suspected) exposure to other viral communicable diseases

== ENCOUNTER → 2020-11-01 | Outpatient (REF) | LOC: M LABSMTC 14:23 | PROVIDERS: ATTEND Pediatrics | DX: Z20.828 Contact with and (suspected) exposure to other viral communicable diseases (principal); Z11.59 Encounter for screening for other viral diseases ==

== ENCOUNTER → 2021-03-23 | Outpatient (REF) | LOC: M EMP 08:52 | PROVIDERS: ATTEND Family Medicine | DX: Z20.822 Contact with and (suspected) exposure to COVID-19 (principal) ==

== ENCOUNTER → 2021-04-01 | Outpatient (REF) | LOC: M EMP 15:51 | PROVIDERS: ATTEND Family Medicine | DX: Z20.822 Contact with and (suspected) exposure to COVID-19 (principal) ==

== ENCOUNTER 2021-04-05 14:05 | Emergency (ER) | payer OTHER ==
[~2021-04-05] VITALS: Ht 170.2 cm; Wt 77.7 kg
[2021-04-05 14:05] VITALS: BP 138/71
== END 2021-04-05 19:12 | disposition left against medical advice (07) ==
LOC: M ED 14:05
DX: Z53.21 Procedure and treatment not carried out due to patient leaving prior to being seen by health care provider (principal)

== ENCOUNTER → 2022-03-03 | Outpatient (REF) | payer OTHER ==
[2022-03-03 19:59] LABS: APPEARANCE, URINE MANUAL HAZY (CLEAR); COLOR, URINE MANUAL ORANGE (YELLOW)
[2022-03-03 20:00] LABS: BILIRUBIN, URINE MANUAL OBSCURED (NEGATIVE); BLOOD URINE MANUAL OBSCURED (NEGATIVE); GLUCOSE, URINE (UA) MANUAL NEGATIVE (NEGATIVE); KETONE, URINE MANUAL OBSCURED mg/dL (NEGATIVE); LEUKOCYTE ESTERASE, URINE MAN OBSCURED (NEGATIVE); NITRITE, URINE MANUAL OBSCURED (NEGATIVE); PROTEIN, URINE MANUAL OBSCURED mg/dL (NEGATIVE); SPECIFIC GRAVITY,URINE MANUAL 1.025 (1.002-1.035); UROBILINOGEN, URINE MANUAL OBSCURED mg/dl (NORMAL)
[2022-03-03 20:19] LABS: AMORPHOUS SEDIMENT, URINE SMALL AMOUNT (NEGATIVE); BACTERIA, URINE MOD AMOUNT; HYALINE CAST, URINE NONE SEEN /lpf (0-1); MUCUS, URINE SMALL AMOUNT (NEGATIVE); SQUAMOUS EPITHELIAL CELL URINE LARGE AMOUNT /hpf (SMALL AMT); WBC, URINE TNTC /hpf (0-3)
== END ==
LOC: M LAB REF 16:28
PROVIDERS: ATTEND Physician Assistant
DX: N39.0 Urinary tract infection, site not specified (principal)

== ENCOUNTER → 2022-04-09 | Outpatient (REF) | LOC: M LABSMTC 11:39 | PROVIDERS: ATTEND Pediatrics | DX: Z20.822 Contact with and (suspected) exposure to COVID-19 (principal) ==

== ENCOUNTER → 2022-06-08 | Outpatient (REF) | payer OTHER ==
[2022-06-08 18:58] LABS: APPEARANCE, URINE MANUAL HAZY (CLEAR); BILIRUBIN, URINE MANUAL NEGATIVE (NEGATIVE); BLOOD URINE MANUAL TRACE (NEGATIVE); COLOR, URINE MANUAL DK YELLOW (YELLOW); GLUCOSE, URINE (UA) MANUAL NEGATIVE (NEGATIVE); KETONE, URINE MANUAL NEGATIVE (NEGATIVE); LEUKOCYTE ESTERASE, URINE MAN POSITIVE (NEGATIVE); NITRITE, URINE MANUAL NEGATIVE (NEGATIVE); PROTEIN, URINE MANUAL TRACE mg/dL (NEGATIVE); SPECIFIC GRAVITY,URINE MANUAL 1.025 (1.002-1.035); UROBILINOGEN, URINE MANUAL NORMAL (NORMAL)
[2022-06-08 20:27] LABS: WBC, URINE 40-50 /hpf (0-3)
[2022-06-08 20:28] LABS: BACTERIA, URINE MOD AMOUNT; MUCUS, URINE SMALL AMOUNT (NEGATIVE); SQUAMOUS EPITHELIAL CELL URINE MOD AMOUNT /hpf (SMALL AMT)
== END ==
LOC: M LAB REF 16:30
PROVIDERS: ATTEND Physician Assistant Medical
DX: N39.0 Urinary tract infection, site not specified (principal)

== ENCOUNTER → 2022-08-07 | Outpatient (REF) | payer OTHER | LOC: M SFHCWAGY 10:08 | PROVIDERS: ATTEND Nurse Practitioner Family | DX: Z12.4 Encounter for screening for malignant neoplasm of cervix (principal) ==

== ENCOUNTER → 2022-08-10 | Outpatient (CLI) | payer OTHER ==
[2022-08-10 13:06] LABS: BASO % 0.6 % (0.0-1.0); EOS # 0.1 10^3/uL (0.0-0.5); EOS % 2.2 % (0.0-3.0); HEMATOCRIT 41.1 % (36.0-47.0); HEMOGLOBIN 13.1 g/dl (12.0-15.5); LYMPH # 1.5 10^3/uL (1.5-5.0); LYMPH % 30.1 % (24.0-44.0); MEAN CORPUSCULAR HEMOGLOBIN 28.4 pg (27.0-33.0); MEAN CORPUSCULAR HGB CONC 31.9 g/dl (32.0-36.5); MEAN CORPUSCULAR VOLUME 89.2 fl (80.0-96.0); MONO # 0.5 10^3/uL (0.0-0.8); MONO % 9.5 % (2.0-8.0); NEUTROPHILS # 2.8 10^3/uL (1.5-8.5); NEUTROPHILS % 56.2 % (36.0-66.0); PLATELET COUNT, AUTOMATED 231 10^3/uL (150-450); RED BLOOD COUNT 4.61 10^6/uL (4.00-5.40); WHITE BLOOD COUNT 5.1 10^3/uL (4.0-10.0)
[2022-08-10 13:28] LABS: HEMOGLOBIN A1c 5.1 % (4.0-6.0)
[2022-08-10 13:33] LABS: TOTAL 25(OH) VITAMIN D 26.2 NG/ML (20.0-100.0)
[2022-08-10 13:35] LABS: FREE T4 1.15 NG/DL (0.89-1.76); THYROID STIMULATING HORMONE 0.721 uIU/ML (0.55-4.78)
[2022-08-10 13:36] LABS: ALBUMIN 4.3 G/DL (3.2-5.2); ALKALINE PHOSPHATASE 53 U/L (46-116); ALT/SGPT 20 U/L (7.0-40); AST/SGOT 22 U/L (<34); BILIRUBIN,TOTAL 0.7 MG/DL (0.3-1.2); BLOOD UREA NITROGEN 14 MG/DL (9-23); CALCIUM LEVEL 9.5 MG/DL (8.5-10.1); CARBON DIOXIDE LEVEL 28 MMOL/L (20-31); CHLORIDE LEVEL 107 MMOL/L (98-107); CHOLESTEROL LEVEL 162 MG/DL (<200); CHOLESTEROL RISK RATIO 4.52 (<5); CREATININE FOR GFR 0.61 MG/DL (0.55-1.30); GLOMERULAR FILTRATION RATE > 60.0 (>60); GLUCOSE, FASTING 93 MG/DL (60-100); HDL CHOLESTEROL 35.8 MG/DL (>40); IRON (FE) 46 UG/DL (50-170); LDL CHOLESTEROL 109.4 MG/DL (<100); NON-HDL-C 126 MG/DL; POTASSIUM SERUM 4.2 MMOL/L (3.5-5.1); SODIUM LEVEL 141 MMOL/L (136-145); TRIGLYCERIDES LEVEL 84 MG/DL (<150)
== END ==
LOC: M PLALAB 09:35
PROVIDERS: ATTEND Nurse Practitioner Family
DX: N92.6 Irregular menstruation, unspecified (principal)

== ENCOUNTER → 2022-08-21 | Outpatient (CLI) | payer OTHER | LOC: M WHC 14:16 | PROVIDERS: ATTEND Nurse Practitioner Family | DX: N63.11 Unspecified lump in the right breast, upper outer quadrant (principal) ==

== ENCOUNTER 2023-10-13 18:05 | Inpatient (IN) | payer MEDICAID, OTHER, SELFPAY ==
[~2023-10-13] VITALS: Ht 167.6 cm; Wt 61.3 kg
[2023-10-13] MEDS ORDERED: ADDE20TA PO (18:14)
[2023-10-13 20:51] LABS: BASO % 0.6 % (0.0-1.0); EOS # 0.1 10^3/uL (0.0-0.5); EOS % 1.1 % (0.0-3.0); HEMATOCRIT 41.4 % (36.0-47.0); HEMOGLOBIN 13.4 g/dl (12.0-15.5); LYMPH # 1.5 10^3/uL (1.5-5.0); LYMPH % 23.6 % (24.0-44.0); MEAN CORPUSCULAR HEMOGLOBIN 28.9 pg (27.0-33.0); MEAN CORPUSCULAR HGB CONC 32.4 g/dl (32.0-36.5); MEAN CORPUSCULAR VOLUME 89.4 fl (80.0-96.0); MONO # 0.6 10^3/uL (0.0-0.8); MONO % 9.5 % (2.0-8.0); NEUTROPHILS # 4.2 10^3/uL (1.5-8.5); NEUTROPHILS % 64.9 % (36.0-66.0); PLATELET COUNT, AUTOMATED 300 10^3/uL (150-450); RED BLOOD COUNT 4.63 10^6/uL (4.00-5.40); WHITE BLOOD COUNT 6.4 10^3/uL (4.0-10.0)
[2023-10-13 21:06] LABS: ETHYL ALCOHOL (ETHANOL) < 0.003 % (0.000-0.010)
[2023-10-13 21:12] LABS: ALBUMIN 3.5 G/DL (3.2-5.2); ALKALINE PHOSPHATASE 69 U/L (46-116); ALT/SGPT 16 U/L (7.0-40); AST/SGOT < 8 U/L (<34); BILIRUBIN,DIRECT 0.2 MG/DL (<0.4); BILIRUBIN,TOTAL 0.5 MG/DL (0.3-1.2); BLOOD UREA NITROGEN 8 MG/DL (9-23); CALCIUM LEVEL 9.6 MG/DL (8.5-10.1); CARBON DIOXIDE LEVEL 26 MMOL/L (20-31); CHLORIDE LEVEL 107 MMOL/L (98-107); CREATININE FOR GFR 0.65 MG/DL (0.55-1.30); GLOMERULAR FILTRATION RATE > 60.0 (>60); GLUCOSE, FASTING 88 MG/DL (60-100); POTASSIUM SERUM 3.6 MMOL/L (3.5-5.1); SODIUM LEVEL 142 MMOL/L (136-145); TOTAL PROTEIN 6.8 G/DL (5.7-8.2)
[2023-10-13 21:19] LABS: RSV AMPLIFICATION NEGATIVE (NEGATIVE)
[2023-10-13] MEDS ORDERED: HOME MED LIST COMPLETE! XX SCH (21:55)
[2023-10-14 04:06] LABS: BARBITURATES URINE NEGATIVE (NEGATIVE); CANNABINOIDS URINE NEGATIVE (NEGATIVE); METHADONE URINE NEGATIVE (NEGATIVE); OPIATES URINE NEGATIVE (NEGATIVE); PHENCYCLIDINE URINE NEGATIVE (NEGATIVE)
[2023-10-14 04:08] LABS: AMPHETAMINES LEVEL URINE POSITIVE (NEGATIVE); BENZODIAZEPINES URINE POSITIVE (NEGATIVE); COCAINE METABOLITE URINE POSITIVE (NEGATIVE)
[2023-10-14 07:48] LABS: SALICYLATE LEVEL < 3.0 MG/DL (<30)
[2023-10-14 07:51] LABS: THYROID STIMULATING HORMONE 1.136 uIU/ML (0.55-4.78)
[2023-10-14] MEDS: BUPRENORPHINE/NALOXONE 8-2MG SUBLINGUAL TABLET(SUBOXONE) SL SCH (08:22)
[2023-10-14] MEDS: ADDERALL 5 MG TAB PO SCH (08:22)
[2023-10-15] MEDS ORDERED: diphenhydrAMINE 25MG CAP PO PRN (16:25)
[2023-10-15] MEDS ORDERED: NICOTINE 21MG/24HR 1 EA TRANSDERMAL TD PRN (16:25)
[2023-10-15] MEDS ORDERED: MOM 30ML SUSPENSION UDC PO PRN (16:25)
[2023-10-15] MEDS ORDERED: ACETAMINOPHEN TAB 650MG DOSE (2X325MG) PO PRN (16:25)
[2023-10-15] MEDS ORDERED: LORazepam 2 MG TAB PO PRN (16:25)
[2023-10-15] MEDS ORDERED: MAALOX 30 ML SUSP *UDC PO PRN (16:25)
[2023-10-15] MEDS ORDERED: OLANZapine ORAL DISINTEGRATING TAB 5MG PO PRN (16:25)
[2023-10-15] MEDS: MULTIVITAMINS/MINERALS THERAP 1 TAB PO SCH (16:37)
[2023-10-15] MEDS: FOLIC ACID 1MG TAB PO SCH (16:37)
[2023-10-15] MEDS: THIAMINE 100 MG TAB PO SCH (17:01)
[2023-10-15 21:57] VITALS: BP 103/57; TEMP 97.5; O2SAT 18; O2SAT 97
[2023-10-16 06:20] VITALS: BP 110/55; TEMP 97.6; O2SAT 98
[2023-10-16 09:00] VITALS: BP 120/71
[2023-10-16] MEDS ORDERED: BUPRENORPHINE/NALOXONE 8-2MG SUBLINGUAL TABLET(SUBOXONE) SL SCH (09:00)
[2023-10-16] MEDS: BUPRENORPHINE/NALOXONE 8-2MG SUBLINGUAL TABLET(SUBOXONE) SL SCH (09:59)
[2023-10-16 17:43] VITALS: BP 116/75; TEMP 97.9; O2SAT 96
[2023-10-16 18:00] VITALS: BP 116/75
[2023-10-16] MEDS: BUPRENORPHINE/NALOXONE 2-0.5MG SUBLINGUAL TABLET(SUBOXONE) SL SCH (18:15)
[2023-10-16 21:25] VITALS: BP 129/65
[2023-10-16] MEDS: traZODone 50 MG TAB PO PRN (21:53)
[2023-10-17 06:00] VITALS: BP 103/55
[2023-10-17 06:13] VITALS: BP_SYST 103; BP_DIAS 55; BP_DIAS 58; TEMP 97.3; O2SAT 94
[2023-10-17 17:17] VITALS: BP 125/61; TEMP 98.4; O2SAT 98
[2023-10-18 06:27] VITALS: BP 115/55; TEMP 97.2; O2SAT 100
[2023-10-18] MEDS: IBUPROFEN 400MG TAB PO PRN (09:00)
[2023-10-18 17:38] VITALS: BP 157/67; TEMP 97.6; O2SAT 99
[2023-10-19 06:15] VITALS: BP 104/55; TEMP 97.3; O2SAT 97
[2023-10-19] MEDS ORDERED: NICO21PAT TD (09:46)
[2023-10-19] MEDS ORDERED: TRAZ-252 PO (09:46)
== END 2023-10-19 12:56 | disposition home or self-care (01) | DRG 753 ==
LOC: M ED 18:05 → M ED INP 10-15 16:21 → M PSY 10-15 21:59
PROVIDERS: ADMIT Student in an Organized Health Care Education/Training Program; ATTEND Student in an Organized Health Care Education/Training Program
DX: F39 Unspecified mood [affective] disorder (principal); R56.9 Unspecified convulsions; R45.851 Suicidal ideations; F11.11 Opioid abuse, in remission; F15.14 Other stimulant abuse with stimulant-induced mood disorder; F90.9 Attention-deficit hyperactivity disorder, unspecified type; F17.200 Nicotine dependence, unspecified, uncomplicated; Z79.899 Other long term (current) drug therapy; Z59.00 Homelessness unspecified; Z56.0 Unemployment, unspecified

== ENCOUNTER → 2024-02-19 | Outpatient (REF) | payer OTHER, MEDICAID, SELFPAY ==
[~2024-02-19] MED LIST changes: +ADDE20TA PO; +NICO21PAT TD; +TRAZ-252 PO
[2024-02-19 17:10] LABS: APPEARANCE, URINE HAZY (CLEAR); BACTERIA, URINE AUTO 1+ (NEGATIVE); BILIRUBIN, URINE AUTO NEGATIVE (NEGATIVE); BLOOD, URINE BLOOD NEGATIVE (NEGATIVE); COLOR, URINE YELLOW (YELLOW); GLUCOSE, URINE (UA) AUTO NEGATIVE (NEGATIVE); KETONE, URINE AUTO NEGATIVE (NEGATIVE); LEUKOCYTE ESTERASE, URINE AUTO NEGATIVE (NEGATIVE); MUCUS, URINE SMALL (NEGATIVE); NITRITE, URINE AUTO NEGATIVE (NEGATIVE); PROTEIN, URINE AUTO NEGATIVE (NEGATIVE); RBC, URINE AUTO 4 /HPF (0-3); SPECIFIC GRAVITY URINE AUTO 1.019 (1.002-1.035); SQUAMOUS EPITHELIAL CELL UR AU 10 /HPF (0-6); UROBILINOGEN, URINE AUTO 0.2 mg/dL (0.0-2.0); WBC, URINE AUTO 2 /HPF (0-3)
== END ==
LOC: M LAB REF 16:19
PROVIDERS: ATTEND Physician Assistant Medical
DX: N39.0 Urinary tract infection, site not specified (principal)

== ENCOUNTER → 2024-06-09 | Outpatient (REF) | payer OTHER ==
[2024-06-09 14:36] LABS: Trichomonas vaginalis (AMP) NOT DETECTED (NEGATIVE)
[2024-06-09 15:00] LABS: GC DNA AMPLIFICATION NEGATIVE (NEGATIVE)
== END ==
LOC: M SFHCWAGY 12:28
PROVIDERS: ATTEND Nurse Practitioner Family
DX: Z34.82 Encounter for supervision of other normal pregnancy, second trimester (principal)

== ENCOUNTER → 2024-07-04 | Outpatient (CLI) | payer OTHER, SELFPAY ==
[2024-07-04 18:00] LABS: HEMATOCRIT 38.3 % (36.0-47.0); HEMOGLOBIN 12.6 g/dl (12.0-15.5); MEAN CORPUSCULAR HEMOGLOBIN 31.3 pg (27.0-33.0); MEAN CORPUSCULAR HGB CONC 32.9 g/dl (32.0-36.5); MEAN CORPUSCULAR VOLUME 95.3 fl (80.0-96.0); PLATELET COUNT, AUTOMATED 301 10^3/uL (150-450); RED BLOOD COUNT 4.02 10^6/uL (4.00-5.40); WHITE BLOOD COUNT 10.6 10^3/uL (4.0-10.0)
[2024-07-04 18:52] LABS: HIV 1&2 SCREEN NEGATIVE (NEGATIVE)
[2024-07-04 18:59] LABS: HEPATITIS C VIRUS ABY INDEX < 0.02 INDEX (<0.8)
[2024-07-04 19:04] LABS: GC DNA AMPLIFICATION NEGATIVE (NEGATIVE)
== END ==
LOC: M PLALAB 15:15
PROVIDERS: ATTEND Nurse Practitioner Family
DX: Z34.80 Encounter for supervision of other normal pregnancy, unspecified trimester (principal)

== ENCOUNTER 2024-08-22 21:38 | Emergency (ER) | payer MEDICAID, OTHER ==
[~2024-08-22] VITALS: Ht 167.6 cm; Wt 82.7 kg
[2024-08-22 21:41] VITALS: BP 148/72; TEMP 96.9; O2SAT 99
== END 2024-08-23 01:48 | disposition left against medical advice (07) ==
LOC: M ED 21:38
DX: Z53.21 Procedure and treatment not carried out due to patient leaving prior to being seen by health care provider (principal)

== ENCOUNTER → 2024-08-26 | Outpatient (CLI) | payer MEDICAID, OTHER | LOC: M RAD 13:31 | PROVIDERS: ATTEND Nurse Practitioner Family | DX: Z34.82 Encounter for supervision of other normal pregnancy, second trimester (principal); Z3A.27 27 weeks gestation of pregnancy ==

== ENCOUNTER → 2024-09-16 | Outpatient (CLI) | payer MEDICAID, OTHER | LOC: M RAD 15:12 | PROVIDERS: ATTEND Nurse Practitioner Family | DX: Z34.80 Encounter for supervision of other normal pregnancy, unspecified trimester (principal) ==

== ENCOUNTER → 2024-10-28 | Outpatient (CLI) | payer MEDICAID, OTHER | LOC: M WHC 15:18 | PROVIDERS: ATTEND Nurse Practitioner Family | DX: Z34.80 Encounter for supervision of other normal pregnancy, unspecified trimester (principal) ==

== ENCOUNTER → 2024-10-28 | Outpatient (CLI) | payer MEDICAID, OTHER ==
[2024-10-28 17:23] LABS: HEMOGLOBIN 9.1 g/dl (12.0-15.5); MEAN CORPUSCULAR HGB CONC 30.3 g/dl (32.0-36.5); MEAN CORPUSCULAR VOLUME 85.7 fl (80.0-96.0); PLATELET COUNT, AUTOMATED 270 10^3/uL (150-450); WHITE BLOOD COUNT 10.4 10^3/uL (4.0-10.0)
[2024-10-28 18:17] LABS: HIV 1&2 SCREEN NEGATIVE (NEGATIVE)
[2024-10-28 18:25] LABS: HEPATITIS C VIRUS ABY INDEX 0.08 INDEX (<0.8)
[2024-10-28 18:37] LABS: GC DNA AMPLIFICATION NEGATIVE (NEGATIVE)
== END ==
LOC: M PLALAB 15:54
PROVIDERS: ATTEND Obstetrics & Gynecology
DX: Z34.82 Encounter for supervision of other normal pregnancy, second trimester (principal)

== ENCOUNTER → 2024-11-05 | Outpatient (REF) | payer MEDICAID, OTHER | LOC: M SFHCWAGY 10:58 | PROVIDERS: ATTEND Nurse Practitioner Family | DX: Z34.82 Encounter for supervision of other normal pregnancy, second trimester (principal) ==

== ENCOUNTER → 2024-11-12 | Outpatient (REF) | payer OTHER | LOC: M SFHCWAGY 15:21 | PROVIDERS: ATTEND Obstetrics & Gynecology | DX: Z36.85 Encounter for antenatal screening for Streptococcus B (principal); Z3A.37 37 weeks gestation of pregnancy ==

== ENCOUNTER → 2024-11-13 | Outpatient (CLI) | payer MEDICAID | LOC: M OUTALCOH 09:03 | PROVIDERS: ATTEND Psychiatry & Neurology Psychiatry | DX: F11.20 Opioid dependence, uncomplicated (principal); F15.20 Other stimulant dependence, uncomplicated; F14.10 Cocaine abuse, uncomplicated; F17.200 Nicotine dependence, unspecified, uncomplicated ==

== ENCOUNTER → 2025-01-08 | Outpatient (REF) | payer MEDICAID ==
[2025-01-08 18:41] LABS: APPEARANCE, URINE HAZY (CLEAR); BACTERIA, URINE AUTO NEGATIVE (NEGATIVE); BILIRUBIN, URINE AUTO NEGATIVE (NEGATIVE); BLOOD, URINE BLOOD NEGATIVE (NEGATIVE); GLUCOSE, URINE (UA) AUTO NEGATIVE (NEGATIVE); KETONE, URINE AUTO NEGATIVE (NEGATIVE); LEUKOCYTE ESTERASE, URINE AUTO NEGATIVE (NEGATIVE); MUCUS, URINE MODERATE (NEGATIVE); NITRITE, URINE AUTO NEGATIVE (NEGATIVE); PROTEIN, URINE AUTO 1+ mg/dL (NEGATIVE); RBC, URINE AUTO 3 /HPF (0-3); SPECIFIC GRAVITY URINE AUTO 1.026 (1.002-1.035); SQUAMOUS EPITHELIAL CELL UR AU 7 /HPF (0-6); UROBILINOGEN, URINE AUTO 2.0 mg/dL (0.0-2.0); WBC, URINE AUTO 2 /HPF (0-3)
== END ==
LOC: M LAB REF 17:06
PROVIDERS: ATTEND Physician Assistant
DX: N39.0 Urinary tract infection, site not specified (principal)